=== PATIENT | female | born 1985 | race Caucasian/White ===

== ENCOUNTER 2017-07-29 18:16 | Emergency (ER) | payer OTHER ==
[~2017-07-29] VITALS: Ht 175.3 cm; Wt 74.3 kg
[2017-07-29 19:42] LABS: HEMATOCRIT 32.2 % (36.0-46.0); HEMOGLOBIN 10.7 G/DL (11.9-15.5); MCH 25.1 PG (29.0-34.0); MCHC 33.2 G/DL (30.0-36.0); MCV 75.4 FL (83-99); PLATELET COUNT 260 K/uL (156-360); RBC DIS.WIDTH-CV 13.9 % (11.8-14.6); RBC DIS.WIDTH-SD 37.6 % (39-53); RED BLOOD COUNT 4.27 M/uL (3.80-5.20); WHITE BLOOD COUNT 13.8 K/uL (4.1-10.2)
[2017-07-29 19:43] LABS: SOURCE URINE
[2017-07-29 19:47] LABS: APPEARANCE SL.HAZY ((CLEAR)); BILIRUBIN NEGATIVE; BLOOD SMALL; COLOR YELLOW ((YELLOW)); GLUCOSE (STRIP) NEGATIVE; KETONES 80; LEUKOCYTES MODERATE; NITRITE NEGATIVE; PROTEIN (STRIP) 30; SPECIFIC GRAVITY 1.012 (1.000-1.030); UROBILINOGEN 0.2 MG/DL (0.2-1.0)
[2017-07-29 19:50] LABS: ALBUMIN 4.5 g/dL (3.2-4.8)
[2017-07-29 19:51] LABS: CHLORIDE 97 mEq/L (99-109); POTASSIUM 3.2 mEq/L (3.7-5.4); SODIUM 134 mEq/L (136-147)
[2017-07-29 19:53] LABS: GLUCOSE 121 mg/dL (70-99); TOTAL PROTEIN 7.4 g/dL (6.4-8.3)
[2017-07-29 19:55] LABS: TOTAL BILIRUBIN 0.7 mg/dL (0.0-1.0)
[2017-07-29 19:55] LABS: BACTERIA RARE /HPF; EPITHELIAL CELLS 2+ /HPF; MUCUS TRACE /LPF; WHITE BLOOD CELLS 15-20 /HPF (0-5)
[2017-07-29 19:56] LABS: ALKALINE PHOSPHATASE 49 IU/L (3-129)
[2017-07-29 19:57] LABS: CREATININE 0.8 mg/dL (0.6-1.3); GFR ESTIMATE (CALCULATED) > 59 mL/min/
[2017-07-29 19:58] LABS: AST (GOT) 20 IU/L (2-34); UREA NITROGEN (BUN) 8 mg/dL (9-23)
[2017-07-29 20:00] LABS: ALT (GPT) 17 IU/L (3-49)
[2017-07-29 20:05] LABS: QUANTITATIVE HCG < 4.0 MIU/ML
[2017-07-29] MEDS ORDERED: PERCOCET 5/31 TABLET PO (22:45)
[2017-07-29] MEDS ORDERED: AUGMENTIN875 MG PO (22:45)
[2017-07-29 23:35] VITALS: BP 120/72
[2017-07-31 11:04] LABS: CHLAMYDIA TRACHOMATIS NEGATIVE; NEISSERIA GONORRHOEAE NEGATIVE
== END 2017-07-30 00:07 | disposition home or self-care (01) ==
LOC: EME 18:16
PROVIDERS: Nurse Practitioner Family
PROC: 0U9L0ZX Drainage of Vestibular Gland, Open Approach, Diagnostic (ICD-10-PCS; principal; 2017-07-29)
DX: N75.1 Abscess of Bartholin's gland (principal); E87.6 Hypokalemia; R00.0 Tachycardia, unspecified; D72.829 Elevated white blood cell count, unspecified; F17.200 Nicotine dependence, unspecified, uncomplicated; Z87.440 Personal history of urinary (tract) infections
CPT/HCPCS: 74177; 80053; 81003; 83605; 84702; 85027; 87040; 87070; 87075; 87076; 87205; 87491; 87591; 93005; 99281; 99285; J1885; J2060; J2405; J7030